=== PATIENT | male | born 1945 | race Caucasian/White ===

== ENCOUNTER 2020-09-07 07:56 | Outpatient (CLI) | payer MEDICARE, SELFPAY | END 2020-09-07 07:57 | disposition home or self-care (01) | LOC: ANHCOVIDVC 07:57 | PROVIDERS: PCP Family Medicine | DX: Z23 Encounter for immunization (principal) | CPT/HCPCS: 0001A; 91300 ==

== ENCOUNTER 2020-09-28 07:58 | Outpatient (CLI) | payer MEDICARE, SELFPAY | END 2020-09-28 07:59 | LOC: ANHCOVIDVC 07:58 | PROVIDERS: PCP Family Medicine | DX: Z23 Encounter for immunization (principal) | CPT/HCPCS: 0002A; 91300 ==

== ENCOUNTER 2023-04-19 08:05 | Emergency (ER) | payer MEDICARE, SELFPAY ==
--- NOTE | 2023-04-19 08:10 | ED.EYEPROB ---
HPI - Eye Problem General Chief complaint: Eye Problems Stated complaint: Rt Eye Irritation Source: patient and RN notes reviewed History of Present Illness HPI Narrative: 77 yo M presents to urgent care with complaints of right eye redness, starting yesterday. Pt reports constant tearing from the right eye with clear drainage. Denies any matting or other discharge from the eye. Denies any visual disturbance or eye pain. Pt does not wear contacts. Related Data Home Medications Medication Instructions Recorded Confirmed multivitamin (Chewable-Sidra tablet) 1 tablet PO DAILY 08/05/19 02/25/23 Allergies Allergy/AdvReac Type Severity Reaction Status Date / Time No Known Allergies Allergy Unknown Verified 04/19/23 08:17 Review of Systems Review of Systems: CONSTITUTIONAL: Denies fever, chills, or sweats. EYES: Denies visual changes, Right eye irritation and tearing ENT: Denies otalgia and sore throat CARDIOVASCULAR: Denies chest pain, palpitations, or edema. RESPIRATORY: Denies cough or dyspnea. GASTROINTESTINAL: Denies abdominal pain, nausea, vomiting, or diarrhea. GENITOURINARY: Denies dysuria or hematuria. SKIN: Denies rash or itching. MUSCULOSKELETAL: Denies back pain, joint pain, or myalgia. NEUROLOGIC: Denies headache, numbness, or weakness. Pertinent positives per HPI. [facility] Past Medical History Medical History Obesity Surgical History Surgical History History of left hip replacement S/P IVC filter Family History Family History Father Family history of coronary artery disease Social History Social History Years smoked: 6 Smoking status: Former smoker Tobacco type: pipe Second hand tobacco smoke exposure: No Smoking end date: 05/27/78 Alcohol intake: current Alcohol use details: rare Substance use: never Substance use type: does not use Living arrangements: with family Occupation/Education: retired Gender identity (if verbalized by the patient): Male Comments At the time of my signature, I reviewed and agree with the nursing past medical, surgical, social, and family history. There is no relevant family history pertinent to the patient complaint. Exam Narrative: GENERAL: This is a well-nourished, well-developed patient, in no apparent distress. HEAD: normocephalic, atraumatic. EYES: Right sclera mildly erythremic and lower conjunctiva injected. Clear drainage noted. EARS: External ears normal, auditory canals clear and without drainage, TMs normal without perforation. Hearing grossly intact. NOSE: External nose normal with no obvious nasal discharge, nares without redness, no rhinorrhea. NECK: Neck supple, non-tender without lymphadenopathy, masses or thyromegaly. CARDIOVASCULAR: Regular rate and rhythm without murmurs, gallops, or rubs. RESPIRATORY: Clear to auscultation. Breath sounds equal bilaterally. No wheezes, rales, or rhonchi. GASTROINTESTINAL: Abdomen soft, non-tender, nondistended. Bowel sounds are active. No hepato-splenomegaly, or palpable masses. No guarding. SKIN: warm, intact with no suspicious lesions or rash, good texture and turgor. NEURO: awake, alert, and oriented to person, place and time. There were no obvious focal neurologic abnormalities. Course Course Level of Care: Express Care Visit Vital Signs Vital signs: Vital Signs Temperature 97.8 F 04/19/23 08:11 Pulse Rate 74 04/19/23 08:11 Respiratory Rate 18 04/19/23 08:11 Blood Pressure 129/63 04/19/23 08:11 Pulse Oximetry 100 04/19/23 08:11 Oxygen Delivery Room Air 04/19/23 08:11 Temperature 97.8 F 04/19/23 08:11 Pulse Rate 74 04/19/23 08:11 Respiratory Rate 18 04/19/23 08:11 Blood Pressure 129/63
[2023-04-19 08:11] VITALS: BP 129/63; PULSE 74; RESP 18; TEMP 36.6; O2SAT 100
== END 2023-04-19 08:33 | disposition home or self-care (01) ==
PROVIDERS: Emergency Provider Nurse Practitioner Family; PCP Family Medicine
DX: H10.9 Unspecified conjunctivitis (principal); Z87.891 Personal history of nicotine dependence; E66.9 Obesity, unspecified; Z68.33 Body mass index [BMI] 33.0-33.9, adult; Z96.642 Presence of left artificial hip joint
CPT/HCPCS: 99213; G0463

== ENCOUNTER 2025-04-26 09:15 | Emergency (ER) | payer MEDICARE, SELFPAY ==
--- NOTE | ~2025-04-26 | XR_ITS ---
XR shoulder LT min 2V 04/26/2025 09:44 Indication: Status post fall shoveling ice Procedure: 5 views left shoulder Comparison: No prior studies for comparison. Findings: There is an old healed left clavicular fracture. Osteopenia. 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 No acute fracture or subluxation. No soft tissue abnormality. Impression: 1: No acute fracture. Reviewed, dictated and finalized at location I. ROPOLOGY FACULTY MEMBER Impression: 1: No acute fracture.
--- NOTE | ~2025-04-26 | XR_ITS ---
XR hip RT 2V w AP pelvis 04/26/2025 09:44 Indication: Right hip pain status post recent fall Procedure: AP pelvis and 2 views right hip Comparison: No prior studies for comparison. Findings: Pelvic rings intact. Sacral foramen are symmetric. No fracture, subluxation or dislocation. 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 Right hip arthroplasty and expected position. No acetabular fracture is seen. Impression: 1: No acute fracture. Reviewed, dictated and finalized at location I. ING MACHINE FILLER Impression: 1: No acute fracture.
[2025-04-26 09:25] VITALS: BP 127/59; PULSE 87; RESP 18; TEMP 36.5; O2SAT 100
--- NOTE | 2025-04-26 09:26 | ED_ITS ---
HPI - Fall General Chief Complaint: Fall Stated Complaint: FELL Time Seen by Provider: 04/26/25 09:19 History of Present Illness HPI Narrative: Patient was trying to shoulder ice off the driveway yesterday when he fell, he tried is throughout his left arm out to catch himself and landed on his right hip also. Today was still feeling sore so came in to get checked out. Did not hit his head. Related Data Home Medications ?Medication ?Instructions ?Recorded ?Confirmed ?Last Taken ?Type multivitamin (Chewable-Sidra tablet) 1 tablet PO DAILY 08/05/19 04/20/25 Unknown History Allergies Allergy/AdvReac Type Severity Reaction Status Date / Time No Known Allergies Allergy Unknown Verified 04/26/25 09:18 Review of Systems Review of Systems: All systems reviewed & are unremarkable except as noted in HPI and below PMFSH Past Medical History Medical History Obesity Surgical History Surgical History S/P IVC filter History of left hip replacement Family History Family History Father Family history of coronary artery disease Social History Social History Years smoked: 6 Smoking status: Former smoker Tobacco type: pipe Second hand tobacco smoke exposure: No Smoking end date: 05/27/78 Alcohol intake: current Alcohol use details: rare Substance use: never Substance use type: does not use Living arrangements: with family Occupation/Education: retired Gender identity (if verbalized by the patient): Male Exam Narrative: EXAMINATION OF ORGAN SYSTEMS/BODY AREAS: Constitutional: Vital signs per nursing GENERAL:[No acute distress, non-toxic appearing.] HEAD: Normal with no signs of head trauma. EYES: EOMI, conjunctiva normal ENT: Hearing grossly intact LUNGS: Nonlabored breathing. HEART: [Regular rate and rhythm] ABD: [Soft], [nontender to palpation] EXT: Slightly diminished range of motion in left shoulder, without any significant tenderness. Slight tenderness to the right hip but able to bear weight. SKIN: [No rashes or lesions.] NEURO: [Alert and oriented x 3. No gross focal sensory or strength deficits.] PSYCH: Normal affect Course Vital Signs Vital signs: Vital Signs Temperature 97.7 F 04/26/25 09:25 Pulse Rate 87 04/26/25 09:25 Respiratory Rate 18 04/26/25 09:25 Blood Pressure 127/59 L 04/26/25 09:25 Pulse Oximetry 100 04/26/25 09:25 Oxygen Delivery Room Air 04/26/25 09:25 Temperature 97.7 F 04/26/25 09:25 Pulse Rate 87 04/26/25 09:25 Respiratory Rate 18 04/26/25 09:25 Blood Pressure 127/59 L 04/26/25 09:25 Pulse Oximetry 100 04/26/25 09:25 Oxygen Delivery Room Air 04/26/25 09:25 MDM - Fall MDM Narrative Medical decision making narrative: Patient presents here with left shoulder and right hip pain after falling on his right hip after he slid on ice while shoveling snow. Did not hit his head, he did also hurt his left shoulder while trying to catch his fall. He is well-appearing here, no head injury, no tenderness to the back, very minimal tenderness to his right hip and left shoulder, he is able to ambulate. X-rays obtained without acute abnormality, stable for discharge with follow-up to PCP and pain medication as needed Discharge Plan Discharge Clinical Impression: Fall Patient Disposition: Home Condition: Stable Instructions: Hip Sprain (ED), Shoulder Sprain (ED) Additional Instructions: Your x-rays today thankfully did not show any fracture. Please follow-up with your doctor and you can return to the ER for any further issues. You can take Tylenol as needed for pain. Patient Language: [place] Prescriptions: New acetaminophen [Tylenol Extra Strength] 500 mg tablet 1,000 mg PO Q6H PRN (Reason: pain) Qty: 50 0RF No Action Chewable-Sidra Tablet,Chewable 1 tablet PO DAILY warfarin 5 mg tablet See Rx Instructions .ROUTE .COMPLEX Qty: 90 2RF Dose Instruction: TAKE 1 TABLET BY MOUTH EVERY DAY Rx Instructions: TAKE 1 TABLET BY MOUTH EVERY DAY lisinopril 10 mg tablet See Rx Instructions .ROUTE .COMPLEX Qty: 90 2RF Dose Instruction: TAKE 1 TABLET BY MOUTH EVERY DAY Rx Instructions: TAKE 1 TABLET BY MOUTH EVERY DAY atorvastatin 10 mg tablet See Rx Instructions .ROUTE .COMPLEX Qty: 90 2RF Dose Instruction: TAKE 1 TABLET BY MOUTH EVERY DAY Rx Instructions: TAKE 1 TABLET BY MOUTH EVERY DAY amoxicillin 500 mg tablet 2,000 mg PO .COMPLEX Qty: 4 0RF Rx Instructions: 2,000 mg PO one hr prior to procedure; Follow-up/Referrals: Kumar John MD [Primary Care Provider, Family Practice]
[2025-04-26 10:34] VITALS: BP 117/70; PULSE 84; RESP 18; O2SAT 99
== END 2025-04-26 10:36 | disposition home or self-care (01) ==
PROVIDERS: Emergency Provider Emergency Medicine; PCP Family Medicine
DX: M25.512 Pain in left shoulder (principal); M25.551 Pain in right hip; W00.0XXA Fall on same level due to ice and snow, initial encounter
CPT/HCPCS: 73030; 73502; 99284